=== PATIENT | male | born 1980 | race Caucasian/White ===

== ENCOUNTER 2022-06-20 21:52 | Inpatient (IN) | payer OTHER ==
[2022-06-20] MEDS ORDERED: ACETAMINOPHEN 1000 MG/100 ML BAG IVPB ONE (22:30)
[2022-06-20] MEDS ORDERED: SODIUM CHLORIDE 0.9% 500 ML INFUS.BAG IV ONE (22:32)
[2022-06-20] MEDS ORDERED: ACETAMINOPHEN INJECTION 100 ML IVPB ONE (22:40)
[2022-06-20 23:13] LABS: INR 1.08 (0.83-1.09); PROTHROMBIN TIME (PATIENT) 12.4 SEC (9.7-13.0)
[2022-06-20 23:16] LABS: ACTIVATED PTT 30.6 SECONDS (25.2-36.5)
[2022-06-20 23:21] LABS: BASO % 0.2 % (0-2.0); EOS % 0.1 % (0-4.5); HEMATOCRIT 44.5 % (35.4-49); HEMOGLOBIN 15.1 GM/dL (11.7-16.9); LYMPH % 10.8 % (8-40); MCH 31.7 pg (25.7-33.7); MEAN PLT VOLUME 10.6 fl (7.5-11.1); MONO % 5.8 % (3.8-10.2); NEUT % 83.1 % (42.8-82.8); PLATELET COUNT 190 10^3/uL (134-434); RBC 4.78 M/mm3 (4.00-5.60); RDW 13.1 % (11.9-15.9); WHITE BLOOD COUNT 12.9 K/mm3 (4.0-10.0)
[2022-06-20 23:24] LABS: URINE APPEARANCE CLEAR; URINE BILIRUBIN NEGATIVE (NEGATIVE); URINE COLOR YELLOW; URINE GLUCOSE (UA) NEGATIVE (NEGATIVE); URINE KETONE NEGATIVE (NEGATIVE); URINE LEUK ESTERASE NEGATIVE (NEGATIVE); URINE NITRITE NEGATIVE (NEGATIVE); URINE PROTEIN TRACE (NEGATIVE)
[2022-06-20 23:29] LABS: ALBUMIN 3.9 g/dl (3.4-5.0); BLOOD UREA NITROGEN 12.7 mg/dL (7-18); CALCIUM 8.6 mg/dL (8.5-10.1)
[2022-06-20 23:32] LABS: CREATININE 0.8 mg/dL (0.55-1.3)
[2022-06-20 23:33] LABS: BILIRUBIN,TOTAL 0.8 mg/dL (0.2-1)
[2022-06-20 23:34] LABS: TOT PROT 7.7 g/dl (6.4-8.2)
[2022-06-21] MEDS ORDERED: CEFOTETAN DISODIUM 2 GM in DEXTROSE 5%-WATER - 100 ML IVPB ONE (00:25)
[2022-06-21] MEDS ORDERED: CEFOXITIN SODIUM 2 GM in DEXTROSE 5%-WATER - 100 ML IVPB ONE (00:41)
[2022-06-21] MEDS ORDERED: ceFAZolin 2 GRAM PREMIX BAG IVPB ONE (00:58)
[2022-06-21] MEDS ORDERED: morphine CARPU-JECT 4 MG/1 ML DISP.SYRIN IVPUSH ONE (00:58)
[2022-06-21] MEDS ORDERED: morphine SULFATE 4 MG/ML VIAL ONE (01:00)
[2022-06-21] MEDS ORDERED: CEFAZOLIN SODIUM 2 GM in DEXTROSE 5%-WATER 100 ML IVPB ONE (01:15)
[2022-06-21] MEDS ORDERED: SODIUM CHLORIDE 1,000 ML IV STA ×2 (03:05→11:15)
[2022-06-21 03:57] LABS: MAGNESIUM 1.8 mg/dL (1.8-2.4)
[2022-06-21 04:01] LABS: PHOSPHOROUS 2.8 mg/dL (2.5-4.9)
[2022-06-21] MEDS ORDERED: ACETAMINOPHEN 1000 MG/100 ML BAG IVPB PRN ×2 (05:00→14:51)
[2022-06-21 06:55] VITALS: BMI 30.5
[2022-06-21] MEDS: INSULIN SLIDING SCALE (NOVOLOG) 1 VIAL SQ SCH ×3 (07:05→17:17)
[2022-06-21 09:13] LABS: BASO % 0.2 % (0-2.0); EOS % 0.1 % (0-4.5); HEMATOCRIT 41.6 % (35.4-49); HEMOGLOBIN 14.2 GM/dL (11.7-16.9); LYMPH % 10.1 % (8-40); MCH 31.7 pg (25.7-33.7); MCHC 34.1 g/dl (32.0-35.9); MEAN CELL VOLUME 92.9 fl (80-96); MEAN PLT VOLUME 10.8 fl (7.5-11.1); MONO % 9.3 % (3.8-10.2); NEUT % 80.3 % (42.8-82.8); PLATELET COUNT 174 10^3/uL (134-434); RBC 4.48 M/mm3 (4.00-5.60); WHITE BLOOD COUNT 12.9 K/mm3 (4.0-10.0)
[2022-06-21 09:40] LABS: CALCIUM 8.1 mg/dL (8.5-10.1)
[2022-06-21 09:41] LABS: ALBUMIN 3.4 g/dl (3.4-5.0); BLOOD UREA NITROGEN 8.8 mg/dL (7-18)
[2022-06-21 09:43] LABS: PHOSPHOROUS 2.8 mg/dL (2.5-4.9)
[2022-06-21 09:44] LABS: CREATININE 0.7 mg/dL (0.55-1.3)
[2022-06-21 09:45] LABS: BILIRUBIN,TOTAL 0.9 mg/dL (0.2-1); TOT PROT 6.6 g/dl (6.4-8.2)
[2022-06-21] MEDS ORDERED: CEFAZOLIN SODIUM 2 GM in DEXTROSE 5%-WATER 100 ML IVPB SCH (10:00)
[2022-06-21] MEDS ORDERED: PIPERACILLIN/TAZOB 4.5 GM 4.5 GM in DEXTROSE 5%-WATER 100 ML IVPB ONE (11:12)
[2022-06-21] MEDS ORDERED: PIPERACILLIN/TAZOBACTAM 3.375 GM VIAL IVPB ONE ×3 (12:18→13:52)
[2022-06-21] MEDS ORDERED: ONDANSETRON 4 MG/2 ML VIAL IVPUSH PRN ×2 (12:52→14:51)
[2022-06-21] MEDS ORDERED: LACTATED RINGERS SOLUTION 1,000 ML IV SCH (13:00)
[2022-06-21] MEDS ORDERED: MIDAZOLAM HCL 2 MG/2 ML SINGLE DOSE VIAL ONE (13:18)
[2022-06-21] MEDS ORDERED: PROPOFOL 20 ML ONE (13:18)
[2022-06-21] MEDS ORDERED: ROCURONIUM BROMIDE 50 MG/5 ML SYRINGE ONE (13:18)
[2022-06-21] MEDS ORDERED: BUPIVACAINE HCL/PF 0.25% (2.5MG/ML) 10 ML VIAL ONE (13:26)
[2022-06-21] MEDS ORDERED: HYDROmorphone HCl 2 MG/ML VIAL ONE (13:56)
[2022-06-21] MEDS ORDERED: DEXAMETHASONE SOD PHOSPHATE 4 MG/1 ML VIAL ONE (14:00)
[2022-06-21] MEDS ORDERED: BUPIVACAINE HCL/PF 0.25% (2.5MG/ML) 10 ML VIAL IJ ONE (14:03)
[2022-06-21] MEDS ORDERED: SUGAMMADEX SODIUM 200 MG/2 ML VIAL ONE (14:12)
[2022-06-21] MEDS: CEFAZOLIN SODIUM 2 GM in DEXTROSE 5%-WATER 100 ML IVPB SCH (17:16)
[2022-06-21] MEDS: LACTATED RINGERS SOLUTION 1,000 ML IV SCH ×2 (18:19→18:21)
[2022-06-22] MEDS: CEFAZOLIN SODIUM 2 GM in DEXTROSE 5%-WATER 100 ML IVPB SCH ×2 (02:15→09:17)
[2022-06-22] MEDS: INSULIN SLIDING SCALE (NOVOLOG) 1 VIAL SQ SCH ×2 (06:49→11:54)
[2022-06-22] MEDS: LACTATED RINGERS SOLUTION 1,000 ML IV SCH ×2 (13:51→21:35)
[2022-06-22] MEDS ORDERED: oxyCODONE HCL 5 MG TABLET PO PRN (14:15)
[2022-06-22] MEDS ORDERED: PIPERACILLIN/TAZOB 3.375 GM 3.375 GM in DEXTROSE 5%-WATER - 50 ML IVPB ONE (14:34)
[2022-06-22] MEDS ORDERED: IBUPROFEN 600 MG TABLET (FP) PO PRN (14:38)
[2022-06-22] MEDS: ACETAMINOPHEN 325 MG TABLET (FP) PO PRN (17:15)
[2022-06-22 17:37] LABS: BASO % 0.3 % (0-2.0); EOS % 0.1 % (0-4.5); HEMATOCRIT 38.3 % (35.4-49); HEMOGLOBIN 12.9 GM/dL (11.7-16.9); LYMPH % 11.6 % (8-40); MCH 31.6 pg (25.7-33.7); MCHC 33.7 g/dl (32.0-35.9); MEAN CELL VOLUME 93.8 fl (80-96); MEAN PLT VOLUME 10.3 fl (7.5-11.1); MONO % 8.2 % (3.8-10.2); NEUT % 79.8 % (42.8-82.8); PLATELET COUNT 155 10^3/uL (134-434); RBC 4.08 M/mm3 (4.00-5.60); RDW 13.2 % (11.9-15.9); WHITE BLOOD COUNT 6.4 K/mm3 (4.0-10.0)
[2022-06-22 17:55] LABS: BLOOD UREA NITROGEN 9.6 mg/dL (7-18); CALCIUM 7.8 mg/dL (8.5-10.1)
[2022-06-22 17:59] LABS: CREATININE 0.9 mg/dL (0.55-1.3)
[2022-06-22] MEDS: HEPARIN NA (PORCINE) 5,000 UNITS/ML 1ML VIAL SQ SCH (21:33)
[2022-06-23] MEDS: ACETAMINOPHEN 325 MG TABLET (FP) PO PRN (02:03)
[2022-06-23] MEDS: LACTATED RINGERS SOLUTION 1,000 ML IV SCH ×2 (05:49→17:22)
[2022-06-23] MEDS ORDERED: PIPERACILLIN/TAZOB 3.375 GM 3.375 GM in DEXTROSE 5%-WATER - 50 ML IVPB SCH (10:00)
[2022-06-23] MEDS: HEPARIN NA (PORCINE) 5,000 UNITS/ML 1ML VIAL SQ SCH ×2 (10:14→21:57)
[2022-06-23] MEDS: PIPERACILLIN/TAZOB 3.375 GM 3.375 GM in DEXTROSE 5%-WATER - 50 ML IVPB SCH (17:22)
[2022-06-24] MEDS: PIPERACILLIN/TAZOB 3.375 GM 3.375 GM in DEXTROSE 5%-WATER - 50 ML IVPB SCH ×3 (01:46→17:42)
[2022-06-24] MEDS: LACTATED RINGERS SOLUTION 1,000 ML IV SCH (08:45)
[2022-06-24] MEDS: HEPARIN NA (PORCINE) 5,000 UNITS/ML 1ML VIAL SQ SCH ×2 (09:36→21:32)
[2022-06-24 10:30] LABS: HEMATOCRIT 40.7 % (35.4-49); HEMOGLOBIN 13.7 GM/dL (11.7-16.9); MCH 31.9 pg (25.7-33.7); MCHC 33.7 g/dl (32.0-35.9); MEAN CELL VOLUME 94.6 fl (80-96); MEAN PLT VOLUME 9.9 fl (7.5-11.1); PLATELET COUNT 165 10^3/uL (134-434); RDW 12.9 % (11.9-15.9); WHITE BLOOD COUNT 4.5 K/mm3 (4.0-10.0)
[2022-06-24 10:49] LABS: CALCIUM 8.4 mg/dL (8.5-10.1)
[2022-06-24 10:53] LABS: CREATININE 0.8 mg/dL (0.55-1.3)
[2022-06-24] MEDS ORDERED: LACTATED RINGERS SOLUTION 1,000 ML IV SCH (17:33)
[2022-06-25] MEDS: PIPERACILLIN/TAZOB 3.375 GM 3.375 GM in DEXTROSE 5%-WATER - 50 ML IVPB SCH ×2 (02:50→10:13)
[2022-06-25 04:34] VITALS: RESP 18
[2022-06-25 06:28] VITALS: BP 100/58; PULSE 61; TEMP 98.2
[2022-06-25] MEDS: HEPARIN NA (PORCINE) 5,000 UNITS/ML 1ML VIAL SQ SCH (10:13)
[2022-06-25 10:36] LABS: HEMATOCRIT 43.3 % (35.4-49); HEMOGLOBIN 14.9 GM/dL (11.7-16.9); MCH 32.4 pg (25.7-33.7); MCHC 34.3 g/dl (32.0-35.9); MEAN CELL VOLUME 94.3 fl (80-96); MEAN PLT VOLUME 10.1 fl (7.5-11.1); PLATELET COUNT 210 10^3/uL (134-434); RBC 4.59 M/mm3 (4.00-5.60); RDW 13.1 % (11.9-15.9); WHITE BLOOD COUNT 4.7 K/mm3 (4.0-10.0)
[2022-06-25 11:17] LABS: CALCIUM 8.9 mg/dL (8.5-10.1)
[2022-06-25 11:18] LABS: BLOOD UREA NITROGEN 11.4 mg/dL (7-18)
[2022-06-25 11:21] LABS: CREATININE 0.9 mg/dL (0.55-1.3)
== END 2022-06-25 11:43 | disposition home or self-care (01) | DRG 225 ==
LOC: JER 21:52 → JERBED 06-21 00:41 → OBSVTOIN 06-21 03:43 → J8W 06-21 03:53
PROVIDERS: ADMIT Internal Medicine
PROC: 0DTJ4ZZ Resection of Appendix, Percutaneous Endoscopic Approach (ICD-10-PCS; principal; 2022-06-21 13:15)
DX: K35.891 Other acute appendicitis without perforation, with gangrene (principal); R50.82 Postprocedural fever; J98.11 Atelectasis; I10 Essential (primary) hypertension; E78.5 Hyperlipidemia, unspecified; E66.9 Obesity, unspecified; Z68.30 Body mass index [BMI] 30.0-30.9, adult
CPT/HCPCS: 36415; 71045-TC-FY; 74177-TC; 80048; 80053; 81003; 82962; 83036; 83605; 83690; 83735; 84100; 85025; 85027; 85610; 85730; 86850; 86900; 86901; 87040; 87086; 88304-TC; 93005; 93010; 94010; 94760; 99285-25; C9803-CS; G0378; J1644; Q9967; U0003; U0005